=== PATIENT | female | born 1980 | race Caucasian/White ===

== ENCOUNTER 2020-08-31 16:39 | Emergency (ER) | payer SELFPAY ==
[2020-08-31] VITALS (10 sets, daily range): BP systolic 110–139; BP diastolic 62–97; PULSE 98–102; RESP 15–18; TEMP 36.6; O2SAT 94–98; BMI 43.7
[2020-08-31 17:12] LABS: Basophils # 0.1 10^3/uL (0.0-0.1); Basophils % 0.4 %; Eosinophils # 0.2 10^3/uL (0.0-0.8); Eosinophils % 0.9 %; Hematocrit 43.1 % (37.0-47.0); Hemoglobin 13.9 g/dL (11.5-15.3); Lymphocytes # 3.6 10^3/uL (0.8-4.8); Lymphocytes % 19.7 %; Mean Corpuscular HGB Conc 32.3 g/dL (30.0-36.0); Mean Corpuscular Volume 93.1 fL (81-99); Mean Platelet Volume 9.7 fL (7.4-10.4); Monocytes # 1.3 10^3/uL (0.2-0.9); Monocytes % 7.3 %; Neutrophils % 70.9 %; Nucleated Red Blood Cells % 0 %; Platelet Count 319 10^3/cmm (130-400); Red Blood Count 4.63 10^6/uL (4.1-5.3); Red Cell Distribution Width 13.1 % (12.1-15.1); White Blood Count 18.2 10^3/uL (4.0-10.0)
[2020-08-31 17:22] LABS: Alanine Aminotransferase 17 U/L (0-33); Albumin Level 4.1 g/dL (3.5-5.2); Alkaline Phosphatase 78 IU/L (35-105); Aspartate Amino Transferase 18 U/L (0-32); Blood Urea Nitrogen 10 mg/dL (6-20); Calcium 9.2 mg/dL (8.5-10.5); Carbon Dioxide 24 mmol/L (22-29); Chloride 101 mmol/L (98-107); Globulin 3.9 g/dL (1.3-4.6); Glomerular Filtration Rate 111.9 mL/min (90-130); Glucose 93 mg/dL (65-115); Lipase 14 U/L (13-60); Osmolality Calculated 281 mOsm/kg (285-295); Sodium 136 mmol/L (136-145); Total Bilirubin 0.4 mg/dL (0.15-1.2)
[2020-08-31 17:44] LABS: Glucose Urine UA Norm (Normal); Ketones Urine Negative (Negative); Protein Urine Neg (Negative); Urine Appearance SL Hazy (CLEAR); Urine Color Yellow (Yellow); pH Urine 5 (5-7)
[2020-08-31 17:45] LABS: Add Urine Microscopic? YES; Bilirubin Urine Neg (Negative); Blood Urine 2+ (Negative); HCG Qualitative Urine. Negative (Negative); Leukocyte Esterase Urine Negative (Negative); Nitrate Urine Negative (Negative); Urobilinogen Urine Norm (Negative)
[2020-08-31 17:54] LABS: Bacteria Urine 1+ /hpf; Squamous Epithelial Cell Urine 15-25 /hpf (0-5)
[2020-08-31 17:55] LABS: Add Urine Culture? No; RBC Urine 15-25 /hpf (0-2); WBC Urine 0-4 /hpf (0-5)
--- NOTE | 2020-08-31 18:19 | CTR_ITS ---
PROCEDURE INFORMATION: Exam: CT Abdomen And Pelvis With Contrast Exam date and time: 08/31/2020 7:32 PM Age: 40 years old Clinical indication: Abdominal pain; Localized; Right lower quadrant (rlq); Patient HX: C/O rlq abd pain w HX of ovarian cyst; Additional info: Rlq pain TECHNIQUE: Imaging protocol: Computed tomography of the abdomen and pelvis with intravenous contrast. Radiation optimization: All CT scans at this facility use at least one of these dose optimization techniques: automated exposure control; mA and/or kV adjustment per patient size (includes targeted exams where dose is matched to clinical indication); or iterative reconstruction. Contrast material: OMNI 300; Contrast volume: 95 ml; Contrast route: INTRAVENOUS (IV); COMPARISON: No relevant prior studies available. RADIATION DOSE METRICS: Total DLP (mGy-cm): 1532.33 FINDINGS: Lungs: Limited assessment of the lung bases fails to reveal evidence for active cardiopulmonary process. Liver: Unremarkable. No mass. Gallbladder and bile ducts: Normal. No calcified stones. No ductal dilation. Pancreas: Normal. No ductal dilation. Spleen: Normal. No splenomegaly. Adrenal glands: Normal. No mass. Kidneys and ureters: Tiny simple appearing cortical cysts left kidney the largest measuring only 10 mm. No follow-up recommended. No hydronephrosis or perinephric fluid bilaterally. No visible nephrolithiasis. Stomach and bowel: Assessment of the hollow viscus fails to reveal evidence of active or acute pathology. Nonobstructed bowel pattern. No visible acute diverticulitis. No visible adynamic or reactive ileus. Appendix: The appendix is visualized and appears noninflamed. Intraperitoneal space: No visible evidence of mesenteric lymphadenitis or active mesenteritis/panniculitis. No free fluid in the pelvis. Vasculature: Unremarkable. No abdominal aortic aneurysm. Lymph nodes: Few marginally prominent retroperitoneal pericaval/periaortic lymph nodes of doubtful clinical significance. Urinary bladder: Urinary bladder decompressed. Reproductive: Large 56 mm cystic structure fundus of the uterus most likely reflecting cystic degeneration of a large uterine leiomyoma. Anteverted uterus. Bones/joints: No visible active or acute osseous pathology. Soft tissues: Unremarkable. Other findings: Marked obesity. CT/CT abdomen pelvis w con* [id number] IMPRESSION: 1. Currently no visible evidence of acute abdominal or pelvic pathologic process. 2. Large 56 mm cystic structure fundus of the uterus most likely reflecting cystic degeneration of a large uterine leiomyoma. COMMENTS: Consistent with the [employer]'s Incidental Findings Committee white paper (J Am Kady Radiol 2018): Any incidental renal lesion less than 1 cm or classified as too small to characterize, or any incidental cystic renal lesion characterized as simple-appearing, is likely benign. No follow-up imaging is recommended for these lesions per consensus recommendations based on imaging criteria. Radiation Dose CTDIVOL = (mGy): DLP = 1532.33 (mGy-cm)
[2020-08-31] MEDS: iohexol 300 mg/mL 100 mL Btl IV (19:43)
--- NOTE | 2020-08-31 20:14 | ED_ITS ---
HPI - Abdominal Pain General: Chief Complaint: Abdominal Pain Stated Complaint: LOWER ABD PAIN Time Seen by Provider: 08/31/20 19:23 History of Present Illness: HPI narrative: 40-year-old lady with 3 days of worsening lower abdominal pain, right worse than left. She says it feels like cramps. They have been quite intense today. She has no fever, no vomiting, no diarrhea. No vaginal bleeding. She states her last period was 3 weeks ago and normal for her. MD elicited complaint: abdominal pain Pertinent past history: other Onset (ago): day(s) (3) Location: RLQ, LLQ and Suprapubic Severity: moderate Quality: cramping and stabbing Radiation: none Migration to: no migration Exacerbating factors: movement Relieving factors: nothing Associated Symptoms: Reports nausea; Denies chills, dyspepsia, dysuria, fever(s), hematochezia, hematuria and vomiting Review of Systems Const: Denies: fever(s) or chills Eyes: Denies: change in vision ENMT: Denies: odynophagia Card: Denies: chest pain, palpitations, irregular heart rhythm, edema or orthopnea Resp: Denies: dyspnea or productive cough GI: Reports: nausea; Denies: vomiting or hematochezia : Denies: dysuria or hematuria Musc: Denies: neck pain or back pain Skin/Breast: Denies: rash or erythema Neuro: Denies: headache(s) Psych: Denies: anxiety Physical Exam Const: GENERAL APPEARANCE: well developed ORIENTATION/CONSCIOUSNESS: Yes oriented to person, Yes oriented to place and Yes oriented to time HENMT: COMMON NORMALS: normocephalic, external ears normal and Normal external nose present HEAD & SCALP: normocephalic FACE & SINUS: normal facial exam NOSE: Normal external nose present and No nasal discharge present EXTERNAL EAR: Yes external ears normal Eye: COMMON NORMALS: Equal, round and reactive pupils present, EOMs intact bilaterally and conjunctivae normal EYELID: eyelids normal CONJUNCTIVA: Yes conjunctivae normal PUPIL: Yes Equal, round and reactive pupils present Neck/C-Spine: GENERAL: No tracheal deviation Chest: COMMONS NORMALS: normal inspection of the chest CHEST: No tenderness Resp: COMMON NORMALS: clear to auscultation bilaterally EFFORT & INSPECTION: No tachypneic, No respiratory distress, No retractions, No uses accessory muscles and No tracheal deviation AUSCULTATION: clear to auscultation bilaterally, no rhonchi, no wheezes and lung sounds not diminished Cardio: COMMON NORMALS: regular rate and regular rhythm RATE: regular rate RHYTHM: regular rhythm HEART SOUNDS: no murmurs PERIPHERAL PULSES: radial pulses present GI: INSPECTION: No abdominal distension AUSCULTATION: No Hyperactive bowel sounds present and No Hypoactive bowel sounds present PALPATION: Yes Tenderness to palpation present (GI) Details: LLQ and RLQ, Yes Guarding due to palpation present (GI) and No Rigid due to palpation PERCUSSION: no dullness to percussion and no tympanic to percussion Neuro: SENSORIUM/ORIENTATION: Yes oriented to person, Yes oriented to place and Yes oriented to time Psych: COMMON NORMALS: mental status grossly normal Skin: COMMON NORMALS: no rashes or lesions noted GENERAL SKIN EXAM: no rashes or lesions noted Course Consultations: Consultation #1: Vega Time: 22:21 Vital Signs: Vital signs: Vital Signs Temperature 97.8 F 08/31/20 16:50 Pulse Rate 100 08/31/20 23:12 Respiratory Rate 16 08/31/20 23:12 Blood Pressure 139/79 08/31/20 23:12 Pulse Oximetry 97 08/31/20 23:12 MDM - Abdominal Pain MDM Narrative: Medical decision making narrative: 40-year-old female with lower belly pain, no fever, no vomiting. Her white blood cell count was 18, although no left shift. Other labs are normal. CT showed a over 5 cm uterine mass that looked cystic. Ultrasound confirms a fibroid, likely that is degenerating. Spoke with gynecology. Agreed on treatment. They will see her in follow-up. Lab Data: Labs: Lab Results 08/31/20 08/31/20 08/31/20 Range/Units 16:56 16:56 17:35 WBC 18.2 H (4.0-10.0) 10^3/ uL RBC 4.63 (4.1-5.3) 10^6/u L Hgb 13.9 (11.5-15.3) g/dL Hct 43.1 (37.0-47.0) % MCV 93.1 (81-99) fL MCH 30.0 (28.0-34.0) pg MCHC 32.3 (30.0-36.0) g/dL RDW 13.1 (12.1-15.1) % Plt Count 319 (130-400) 10^3/c mm MPV 9.7 (7.4-10.4) fL Neut % (Auto) 70.9 % Lymph % (Auto) 19.7 % Coal % (Auto) 7.3 % Eos % (Auto) 0.9 % Baso % (Auto) 0.4 % Neut # (Auto) 12.90 H (1.8-7.7) 10^3/u L Lymph # (Auto) 3.6 (0.8-4.8) 10^3/u L Coal # (Auto) 1.3 H (0.2-0.9) 10^3/u L Eos # (Auto) 0.2 (0.0-0.8) 10^3/u L Baso # (Auto) 0.1 (0.0-0.1) 10^3/u L Nucleated RBC % (a uto) 0 % Nucleated RBCs # 0.0 /100WBC Sodium 136 (136-145) mmol/L Potassium 4.0 (3.5-5.1) mmol/L Chloride 101 (98-107) mmol/L Carbon Dioxide 24 (22-29) mmol/L Anion Gap 15.0 (5-19) BUN 10 (6-20) mg/dL Creatinine 0.6 (0.5-0.9) mg/dL GFR Calculation 111.9 (90-130) mL/min Glucose 93 (65-115) mg/dL Calculated Osmolal ity 281 L (285-295) mOsm/k g Calcium 9.2 (8.5-10.5) mg/dL Total Bilirubin 0.4 (0.15-1.2) mg/dL AST 18 (0-32) U/L ALT 17 (0-33) U/L Alkaline Phosphata se 78 (35-105) IU/L Total Protein 8.0 (6.6-8.7) g/dL Albumin 4.1 (3.5-5.2) g/dL Globulin 3.9 (1.3-4.6) g/dL Lipase 14 (13-60) U/L HCG, Qual Negative (Negative) Urine Color (Yellow) Urine Appearance (CLEAR) Urine pH (5-7) Ur Specific Gravit y (1.005-1.030) Urine Protein (Negative) Urine Glucose (UA) (Normal) Urine Ketones (Negative) Urine Blood (Negative) Urine Nitrate (Negative) Urine Bilirubin (Negative) Urine Urobilinogen (Negative) mg/dL Ur Leukocyte Elissa ase (Negative) Urine RBC (0-2) /hpf Urine WBC (0-5) /hpf Ur Squamous Epith Cells (0-5) /hpf Amorphous Sediment Urine Bacteria (NONE) /hpf 08/31/20 Range/Units 17:35 WBC (4.0-10.0) 10^3/ uL RBC (4.1-5.3) 10^6/u L Hgb (11.5-15.3) g/dL Hct (37.0-47.0) % MCV (81-99) fL MCH (28.0-34.0) pg MCHC (30.0-36.0) g/dL RDW (12.1-15.1) % Plt Count (130-400) 10^3/c mm MPV (7.4-10.4) fL Neut % (Auto) % Lymph % (Auto) % Coal % (Auto) % Eos % (Auto) % Baso % (Auto) % Neut # (Auto) (1.8-7.7) 10^3/u L Lymph # (Auto) (0.8-4.8) 10^3/u L Coal # (Auto) (0.2-0.9) 10^3/u L Eos # (Auto) (0.0-0.8) 10^3/u L Baso # (Auto) (0.0-0.1) 10^3/u L Nucleated RBC % (a uto) % Nucleated RBCs # /100WBC Sodium (136-145) mmol/L Potassium (3.5-5.1) mmol/L Chloride (98-107) mmol/L Carbon Dioxide (22-29) mmol/L Anion Gap (5-19) BUN (6-20) mg/dL Creatinine (0.5-0.9) mg/dL GFR Calculation (90-130) mL/min Glucose (65-115) mg/dL Calculated Osmolal ity (285-295) mOsm/k g Calcium (8.5-10.5) mg/dL Total Bilirubin (0.15-1.2) mg/dL AST (0-32) U/L ALT (0-33) U/L Alkaline Phosphata se (35-105) IU/L Total Protein (6.6-8.7) g/dL Albumin (3.5-5.2) g/dL Globulin (1.3-4.6) g/dL Lipase (13-60) U/L HCG, Qual (Negative) Urine Color Yellow (Yellow) Urine Appearance Sl hazy (CLEAR) Urine pH 5 (5-7) Ur Specific Gravit y 1.020 (1.005-1.030) Urine Protein Neg (Negative) Urine Glucose (UA) Norm (Normal) Urine Ketones Negative (Negative) Urine Blood 2+ H (Negative) Urine Nitrate Negative (Negative) Urine Bilirubin Neg (Negative) Urine Urobilinogen Norm (Negative) mg/dL Ur Leukocyte Elissa ase Negative (Negative) Urine RBC 15-25 H (0-2) /hpf Urine WBC 0-4 H (0-5) /hpf Ur Squamous Epith Cells 15-25 H (0-5) /hpf Amorphous Sediment Not Reportable Urine Bacteria 1+ H (NONE) /hpf Discharge Plan Discharge Patient Disposition: Home Clinical Impression: Uterine fibroid Qualifiers: Uterine leiomyoma location: unspecified location Qualified Code(s): D25.9 - Leiomyoma of uterus, unspecified Condition: Stable Prescriptions: New ketorolac 10 mg tablet 10 mg PO TID PRN (Reason: pain) Qty: 10 RF: 0 Percocet 5-325 mg tablet 1 tab PO Q6H PRN (Reason: pain) Qty: 10 RF: 0 No Action ibuprofen 200 mg Tablet 800 mg PO DAILY RF: 0 Discharge Orders: Discharge Order (Routine); Ordered 08/31/20 Ordered By: Mando Navarro Referrals: Roge Ferrari MD [Physician] - 7-10 days Discharge Diet: Usual diet Discharge Activity: Increase activity as tolerated Patient Instructions: Uterine Fibroids (ED) Activity Restrictions/Additional Instructions: Return for fever greater than 100, worsening pain despite treatment, vomiting liquids or medications, other concerning symptoms. Follow-up with gynecology as directed. Have them a call Thursday to let them know you were seen here and were asked to follow-up. Coding Level of Care Code ED Fraud Prevention Analyst for Chg Fwd Exam Comprehensive
--- NOTE | 2020-08-31 20:19 | USR_ITS ---
PROCEDURE INFORMATION: Exam: US Pelvis Complete, Transabdominal and US Pelvis, Transvaginal Exam date and time: 08/31/2020 10:00 PM Age: 40 years old Clinical indication: Pelvic pain; Additional info: Pelvic pain, uterine mass TECHNIQUE: Imaging protocol: Real-time transabdominal and transvaginal pelvic ultrasound (complete) with image documentation. Transvaginal imaging was used for better evaluation of the endometrium, adnexa, and/or cervix. COMPARISON: CT abdomen pelvis w con* [id number] 08/31/2020 7:42 PM FINDINGS: Uterus/cervix: Uterus 10.9 x 6.7 x 5.3 cm transabdominally; 9.7 x 5.5 x 6.7 cm transvaginally. Endometrium 15.6 mm transvaginally. Isoechoic, slightly heterogeneous nonvascular uterine fundal 4.9 cm intramural leiomyoma. Small uterine cervical nabothian cysts. Right adnexa: Right ovary 2.9 x 4.8 x 2.2 cm transabdominally; 2.6 x 3.9 x 2.4 cm transvaginally. No mass or cyst. Normal color and pulsed Doppler blood flow. The arterial resistive index is 0.56. Left adnexa: Left ovary 2.7 x 4.9 x 2.7 cm transabdominally; 2.1 x 3.2 x 1.6 cm transvaginally. No mass or cyst. Normal color and pulsed Doppler blood flow. The arterial resistive index is 0.63. Intraperitoneal space: Minimal cul-de-sac anechoic peritoneal fluid. Urinary bladder: Normal. US/US pelvic with transvaginal IMPRESSION: Uterine leiomyoma.
[2020-08-31] MEDS: fentaNYL 50 mcg/mL INJ 2mL 100 MCG IVP ×2 (20:30→23:11)
[2020-08-31] MEDS: ketorolac 30 mg/mL INJ IVP (20:31)
[2020-08-31] MEDS: ondansetron 2 mg/ML SDV 2 mL 4 MG IVP (20:31)
--- NOTE | 2020-09-03 13:22 | DCPLANNER ---
cath lab manager had message to schedule a follow up appointment for patient with [facility]. cath lab manager called [facility], spoke with Magalis, gave clinic patients information. cath lab manager was told that patients information would be printed and reviewed. Clinic will call patient with appointment information.
--- NOTE | 2020-09-04 08:41 | DCPLANNER ---
Patient has a follow up appointment scheduled for Monday, September 28, 2020 at 1:[address] Ferrari. Clinic will call patient with appointment information.
--- NOTE | 2020-09-28 15:08 | DCPLANNER ---
Patient had follow up appointment scheduled for 09.28.20 with [facility] - patient did attend appointment.
== END 2020-08-31 23:13 | disposition home or self-care (01) ==
PROVIDERS: Emergency Medicine; Emergency Provider Emergency Medicine
DX: D25.9 Leiomyoma of uterus, unspecified (principal)
CPT/HCPCS: 12345; 36415; 74177; 76830; 76856; 80053; 81001; 81025; 83690; 85025; 96374; 96375; 96376; 99283; J1885; J2405; J3010; Q9967